=== PATIENT | female | born 1955 | race African-American/Black ===

== ENCOUNTER → 2017-10-03 | Day surgery (SDC) | payer BC ==
--- NOTE | ~2017-10-03 | EKG ---
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 : 1955 Requested By: Todd Jules Order Number: [id number] MD: Niall Curiel Measurements Intervals [place] Rate: 91 P: 28 OR: 147 QRS: -3 QRSD: 82 T: 27 QT: 346 QTc: 426 Interpretive Statements Sinus rhythm Consider left ventricular hypertrophy Inferior infarct, old Poor R wave progression No previous ECG available for comparison Electronically Signed On 10-03-2017 16:56:10 CDT by Niall Curiel [email or web address] <ELECTRONICALLY SIGNED> By: Niall Curiel MD, [facility] 10/03/17 1656 D: 080 1410 Niall Curiel MD, FACC /EPI
== END | disposition home or self-care (01) ==
LOC: ORMALL 13:48
DX: N20.0 Calculus of kidney (principal); I10 Essential (primary) hypertension; E11.9 Type 2 diabetes mellitus without complications; J45.909 Unspecified asthma, uncomplicated; G47.33 Obstructive sleep apnea (adult) (pediatric); Z87.19 Personal history of other diseases of the digestive system; Z90.49 Acquired absence of other specified parts of digestive tract; Z98.84 Bariatric surgery status; Z98.890 Other specified postprocedural states; Z91.040 Latex allergy status; Z88.2 Allergy status to sulfonamides; Z88.6 Allergy status to analgesic agent; Z88.8 Allergy status to other drugs, medicaments and biological substances; Z79.899 Other long term (current) drug therapy

== ENCOUNTER → 2018-03-06 | Outpatient (CLI) | payer BC ==
--- NOTE | 2018-03-06 17:11 | EKG ---
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 : 1955 Requested By: Todd Jules Order Number: [id number] MD: Niall uCriel Measurements Intervals [place] Rate: 79 P: 19 CA: 137 QRS: 11 QRSD: 84 T: 20 QT: 364 QTc: 418 Interpretive Statements Sinus rhythm Poor R wave progression Compared to ECG 10/03/2017 14:10:31 ST (T wave) deviation now present Inferior Q waves are no longer present Electronically Signed On 03-06-2018 17:11:10 [employer] by Niall Curiel [email or web address] <ELECTRONICALLY SIGNED> By: Niall Curiel MD, [facility] 03/06/18 1711 1505 1505 Niall Curiel MD, [facility] /EPI
== END | disposition home or self-care (01) ==
LOC: LITH 14:26
DX: N20.0 Calculus of kidney (principal); I10 Essential (primary) hypertension; E11.9 Type 2 diabetes mellitus without complications; J45.909 Unspecified asthma, uncomplicated; K21.9 Gastro-esophageal reflux disease without esophagitis; G62.9 Polyneuropathy, unspecified; M10.9 Gout, unspecified; Z98.0 Intestinal bypass and anastomosis status; Z87.19 Personal history of other diseases of the digestive system; Z98.890 Other specified postprocedural states; Z79.899 Other long term (current) drug therapy